=== PATIENT | male | born 1970 | race Caucasian/White ===

== ENCOUNTER 2021-05-14 20:54 | Emergency (ER) | payer OTHER ==
[~2021-05-14] VITALS: Ht 188 cm; Wt 131.5 kg
--- NOTE | 2021-05-14 21:06 | NUR ---
Patient presents with C/O possible infection on ankle. Patient states, "I have MS and have difficulty walking and have braces I use. I walked more than normal the last two weeks and my brace was rubbing the outside of my right ankle. I don't have much feeling in my legs so I didn't know it had developed. My sister looked at it and she said I needed to go to ER, so here I am." Patient alert, no signs of distress noted, vital signs stable. Patient rates pain 2/10 aching. No other complaints at this time.
[2021-05-14 21:17] VITALS: BP 164/87
[2021-05-14] MEDS ORDERED: ROCEPHIN IM STA (21:48)
--- NOTE | 2021-05-14 21:48 | ER.PDOC ---
General Chief Complaint: Extremities Stated Complaint: POSS FOOT INFECTION Time seen by MD: 21:39 Source: patient Exam Limitations: no limitations History of Present Illness Initial Comments Possible infection on right ankle for the past few days. Patient wears a brace because of Muscular dystrophy. He had an abrasion by the brace scrubbing against her right ankle which eventually is infected. No fever or chills. Severity: mild Location: RLE (ankle) Identified Cause: yes Allergies: Coded Allergies: sulfamethoxazole (Verified Adverse Reaction, Intermediate, Hives, 05/14/21) trimethoprim (Verified Adverse Reaction, Intermediate, Hives, 05/14/21) Past Medical History Medical History: other (Muscular dystrophy) Surgical History: no surgical history Family History Significant Family History: no pertinent family hx Social History Alcohol Use: occassionally Drug Use: none Constitutional: no symptoms reported EENTM: no symptoms reported Respiratory: no symptoms reported Cardiovascular: no symptoms reported Gastrointestinal: no symptoms reported Musculoskeletal: see HPI Skin: see HPI All Other Systems: Reviewed and Negative Physical Exam General Appearance: alert, no distress Skin: with erythema Location: RLE (lateral aspect of right ankle) Character: erythematous With: warmth, swelling, inflammation EENT: eyes nml inspection, lips/gums nml, pharynx nml Neck: trachea midline, no swelling Respiratory: no resp. distress, breath sounds nml CVS: reg. rate & rhythm, heart sounds nml Abdomen: non-tender, no organomegaly NEURO/PSYCH: oriented x 3, CN's nml as tested, motor nml, sensation nml, mood/affect nml Comments There is a healed abrasion on lateral malleolus of right ankle. There is surrounding redness, erythema slightly warm to touch. Results/Orders Results/Orders Vital Signs Date Time Temp Pulse Resp B/P (MAP) Pulse Ox O2 Delivery O2 Flow Rate FiO2 05/14/21 21:17 98.2 100 18 164/87 (112) 98 Room Air 05/14/21 21:17 98.2 100 18 05/14/21 21:17 98.2 100 18 98 Progress Progress Area of cellulitis marked with skin marker. Patient instructed to return to the ED if worsening redness or concerns. ER DEPART Departure Time of Disposition: 21:50 Disposition: 01 HOME / SELF CARE / HOMELESS Impression: Primary Impression: Cellulitis of right ankle Condition: Stable Referrals: KATHRYN,TOD F DO (PCP) PRIMARY CARE PROVIDER Additional Instructions: Clindamycin Follow-up with your PCP in 2 to 3 days Return to ED if worsening or concerns Duration or Time Spent with Pa: 10 min JANES ROACH MD May 14, 2021 21:48
[2021-05-14] MEDS ORDERED: ROCEPHIN ONE (22:10)
== END 2021-05-14 22:30 | disposition home or self-care (01) ==
LOC: ER 20:54
DX: L03.115 Cellulitis of right lower limb (principal); G71.00 Muscular dystrophy, unspecified; Z88.1 Allergy status to other antibiotic agents; Z88.2 Allergy status to sulfonamides
CPT/HCPCS: 96372; 99283; J0696

== ENCOUNTER 2021-07-19 12:32 | Emergency (ER) | payer OTHER ==
[~2021-07-19] VITALS: Ht 188 cm; Wt 129.3 kg
[2021-07-19 15:12] VITALS: BP 146/90
[2021-07-19 15:33] VITALS: BP 146/90
[2021-07-19 15:35] VITALS: BP 146/90
--- NOTE | 2021-07-19 15:38 | NUR ---
Pt A/O x4, able to communicate needs, denies pain. MD at bedside. Continue to monitor.
--- NOTE | 2021-07-19 15:40 | ER.PDOC ---
General Chief Complaint: Requesting Medical Care Stated Complaint: SWOLLEN AND PURPLE ANKLE/RETURN INFECTION TRAVEL OUT OF US: No Time seen by MD: 15:15 Source: patient Exam Limitations: no limitations History of Present Illness Initial Comments 50-year-old male presents for evaluation of nonhealing wound to his right lower extremity. He has a history of muscular dystrophy and he wears foot braces at all times. He has an area where on the lateral aspect of his right ankle the brace rubs and he has developed a callus. Skin is nonhealing. No warmth to the area. No purulent drainage. Was on antibiotics recently. Denies any fevers or chills or new trauma to the area. He still continues to smoke and has poorly controlled diabetes. Since losing his disability several years ago he has not had routine follow-up with medical providers. No other complaints at this time Allergies: Coded Allergies: sulfamethoxazole (Verified Adverse Reaction, Intermediate, Hives, 05/14/21) trimethoprim (Verified Adverse Reaction, Intermediate, Hives, 05/14/21) Past Medical History Medical History: coronary artery disease, cardiac problems, diabetes, hypertension, other Surgical History: no surgical history Social History Alcohol Use: occassionally Drug Use: none Review of Systems Constitutional: no symptoms reported EENTM: no symptoms reported Respiratory: no symptoms reported Cardiovascular: no symptoms reported Gastrointestinal: no symptoms reported Genitourinary: no symptoms reported Musculoskeletal: see HPI Skin: see HPI Psychiatric/Neurological: no symptoms reported Hematologic/Lymphatic: no symptoms reported Immunological/Allergic: no symptoms reported All Other Systems: Reviewed and Negative Physical Exam General Appearance: No Apparent Distress CVS: other (Capillary refill is somewhat diminished at 3 seconds on bilateral lower extremities. No signs of limb ischemia. Palpable 2+ pulses noted dorsalis pedis.) Extremities: Other (Examination of right lower extremity reveals nonhealing callus on the lateral aspect of the right ankle. No overlying erythema or warmth. No purulent discharge. Sequelae of old surgical scars noted.) Skin: Normal Color, Other (Wound as above.) Results/Orders Results/Orders Vital Signs Date Time Temp Pulse Resp B/P (MAP) Pulse Ox O2 Delivery O2 Flow Rate FiO2 07/19/21 15:33 97.8 73 22 07/19/21 15:12 97.8 73 22 96 Progress Progress Patient with nonhealing wound. Provided with dressing supplies changes. Discharged in satisfactory condition. Encouraged follow-up with podiatry. No signs of acute joint infection or cellulitis. Return precautions provided. Patient was agreeable to discharge plan. ER DEPART Departure Time of Disposition: 15:39 Disposition: 01 HOME / SELF CARE / HOMELESS Impression: Primary Impression: Foot callus Condition: Improved Referrals: TOD PERALTA DO (PCP) PRIMARY CARE PROVIDER Duration or Time Spent with Pa: 15 JESUSITA BAIRES DO Jul 19, 2021 15:39
== END 2021-07-19 15:50 | disposition home or self-care (01) ==
LOC: ER 12:41
DX: L84 Corns and callosities (principal); I10 Essential (primary) hypertension; Z88.1 Allergy status to other antibiotic agents; Z88.2 Allergy status to sulfonamides
CPT/HCPCS: 99284

== ENCOUNTER 2022-04-24 10:09 | Emergency (ER) | payer SELFPAY ==
[~2022-04-24] VITALS: Ht 188 cm; Wt 113.4 kg
[2022-04-24 10:09] VITALS: BP 158/75
--- NOTE | 2022-04-24 10:09 | NUR ---
ARRIVAL PATIENT ARRIVED TO ED5 AMBULATORY, C/O SORE THROAT AND KNOTS ON HIS NECK TODAY, CONCERNED AND CAME TO THE ED FOR EVAL, VITAL SIGNS TAKEN AND DOCTOR NOTIFIED OF PATIENT'S ARRIVAL.
[2022-04-24] MEDS ORDERED: TORADOL IM STA (10:16)
[2022-04-24] MEDS ORDERED: DECADRON PO STA (10:16)
[2022-04-24] MEDS ORDERED: TORADOL ONE (10:30)
[2022-04-24] MEDS ORDERED: DECADRON ONE (10:30)
[2022-04-24 11:16] VITALS: BP 132/73
--- NOTE | 2022-04-24 11:35 | ER.PDOC ---
General Chief Complaint: General Complaint Stated Complaint: NECK PAIN TRAVEL OUT OF US: No Time seen by MD: 10:05 Source: patient Exam Limitations: no limitations History of Present Illness Initial Comments Patient is a 51-year-old male with past medical history documented later in this chart who comes in with a right-sided preauricular tender lymph node that showed up 1 day ago. Patient states that he has been having a sore throat for the past couple of days but states that it radiates up into his right ear It is a sore in the natureNothing seems make better or worse. Patient states that the lymph node in popped up this morning states that it was very tender to palpation and made him nervous so he decided to come into the ER. Patient states is only on the right side of his neck states that the pain is made worse when you touch it better when left alone. Patient denies any fevers or any other symptoms at this time. Allergies: Coded Allergies: sulfamethoxazole (Verified Adverse Reaction, Intermediate, Hives, 05/14/21) trimethoprim (Verified Adverse Reaction, Intermediate, Hives, 05/14/21) Past Medical History Medical History: diabetes, hypertension Surgical History: other Family History Significant Family History: no pertinent family hx Social History Smoking: non-smoker Alcohol Use: none Drug Use: none Reviewed Nursing Reviewed: Vital Signs, Abn. Noted, Nursing Assessment Review of Systems Constitutional: denies no symptoms reported, denies see HPI, denies chills, denies diaphoresis, denies fever, denies malaise, denies weakness, denies other EENTM: ear pain, throat pain Respiratory: denies no symptoms reported, denies see HPI, denies cough, denies orthopnea, denies shortness of breath, denies stridor, denies wheezing, denies other Cardiovascular: denies no symptoms reported, denies see HPI, denies chest pain, denies edema, denies palpitations, denies syncope, denies other Gastrointestinal: denies no symptoms reported, denies see HPI, denies abdominal pain, denies constipation, denies diarrhea, denies nausea, denies vomiting, denies other Genitourinary: denies no symptoms reported, denies see HPI, denies discharge, denies dysuria, denies frequency, denies hematuria, denies pain, denies other Musculoskeletal: denies no symptoms reported, denies see HPI, denies back pain, denies gout, denies joint pain, denies joint swelling, denies muscle pain, denies muscle stiffness, denies neck pain, denies other Skin: denies no symptoms reported, denies see HPI, denies change in color, denies change in hair/nails, denies dryness, denies lesions, denies lumps, denies rash, denies other Hematologic/Lymphatic: swollen glands Immunological/Allergic: denies no symptoms reported, denies see HPI, denies food allergy, denies grass allergy, denies mold allergy, denies pollen allergy, denies HIV/AIDS, denies transplant Physical Exam General Appearance: No Apparent Distress, WD/WN EENT: eyes nml inspection, pharyngeal erythema, tenderness (Right-sided preauricular lymph node tender to palpation), other (Otitis media in right ear with effusion) Neck: Lymphadenopathy (R) Respiratory: chest non-tender, lungs clear, normal breath sounds, no respiratory distress CVS: reg rate & rhythm, no murmur, nml capillary refill Gastrointestinal: Normal Bowel Sounds, No Organomegaly, Non Tender Back: Normal Inspection, No CVA Tenderness Extremities: Normal Range of Motion, Non-Tender, Normal Inspection Neurologic/Psychiatric: roundsman II-XII NML as Tested, No Motor/Sensory Deficits, Alert, Normal Mood/Affect, Oriented x 3 Skin: Normal Color Lymphatic: Other (Right sided preauricular lymphadenopathy 1 lymph node) Results/Orders Results/Orders Orders - DIEGO BAPTISTE MD Strep Screen (04/24/22 10:16) Covid19 Antigen Tawny Andra (04/24/22 10:16) Influenza A&B (04/24/22 10:16) Monotest (04/24/22 10:16) Ketorolac Tromethamine (Toradol) (04/24/22 10:16) Dexamethasone (Decadron) (04/24/22 10:16) Vital Signs Date Time Temp Pulse Resp B/P (MAP) Pulse Ox O2 Delivery O2 Flow Rate FiO2 04/24/22 11:16 97.6 59 18 132/73 (92) 97 Room Air* 0 21 04/24/22 10:09 97.6 59 18 158/75 (102) 97 Room Air* 0 21 10/5/22 10:09 97.6 59 18 97 04/24/22 10:09 97.6 59 18 Administered Medications Medications (Trade) Dose Ordered Sig/Parul Route PRN Reason Start Time Stop Time Status Last Admin Dose Admin Dexamethasone (Decadron) 8 mg STAT STAT PO 04/24/22 10:16 04/24/22 10:18 DC 04/24/22 10:33 8 MG Ketorolac Tromethamine (Toradol) 15 mg OT STAT IM 04/24/22 10:16 04/24/22 10:18 DC 04/24/22 10:33 15 MG Laboratory Tests Test 04/24/22 10:26 04/24/22 10:49 Monoscreen NEGATIVE (NEGATIVE) Influenza Type A Antigen NEGATIVE (NEG) Influenza Type B Antigen NEGATIVE (NEG) SARS-CoV-2 Antigen (Rapid) NEGATIVE (NEGATIVE) Group A Streptococcus Screen NEGATIVE (NEGATIVE) Progress Progress Patient here with Otitis media in the right ear with effusion as well as a reactive lymph nodeIn the preauricular area on that side as well. Will swab for flu COVID strep and do a Monospot. We will also give some symptomatic control here in the ER. [id number] states he feels somewhat better. Will discharge with Augmentin and dexamethasone meclizine as that ear is causing him to be a little dizzy as well as some Sudafed for symptomatic control. Patient voiced understanding of when to follow-up and when to return to the ER. We had a long discussion that I do truly believe that this lymph node is reactive however if it does not get better he may need a further investigation and work-up. ER DEPART Departure Time of Disposition: 11:34 Disposition: HOME / SELF CARE / HOMELESS Impression: Primary Impression: Otitis media Additional Impression: Reactive lymphadenopathy Condition: Improved Patient Instructions: Otitis Media with Effusion Referrals: TOD PERALTA DO (PCP) PRIMARY CARE PROVIDER Additional Instructions: I have written you several prescriptions please take them as prescribed. As we discussed you need to follow-up with your primary care provider within 1 week. If you have any new persistent or worsening symptoms or concerns seek medical attention. If your lymph node does not improve you do need to have it further investigated with more lab work and potentially imaging. Duration or Time Spent with Pa: 40 Problem Qualifiers Primary Impression: Otitis media Otitis media type: suppurative Chronicity: acute Laterality: right Recurrence: not specified as recurrent Spontaneous tympanic membrane rupture: without spontaneous rupture Qualified Codes: H66.001 - Acute suppurative otitis media without spontaneous rupture of ear drum, right ear DIEGO BAPTISTE MD Apr 24, 2022 11:35
[2022-04-24 11:39] VITALS: BP 142/82
[2022-04-24 11:43] VITALS: BP 122/68
== END 2022-04-24 11:43 | disposition home or self-care (01) ==
LOC: ER 10:09
DX: H66.001 Acute suppurative otitis media without spontaneous rupture of ear drum, right ear (principal); Z20.822 Contact with and (suspected) exposure to COVID-19; E11.9 Type 2 diabetes mellitus without complications; R59.1 Generalized enlarged lymph nodes; I10 Essential (primary) hypertension; Z88.1 Allergy status to other antibiotic agents; Z88.2 Allergy status to sulfonamides
CPT/HCPCS: 99283; 87426; 96372; 87070; 87880; 87804 ×2; 86308; J8540; J1885

== ENCOUNTER 2022-07-16 19:14 | Emergency (ER) | payer OTHER ==
[~2022-07-16] VITALS: Ht 188 cm; Wt 113.4 kg
[2022-07-16 20:52] VITALS: BP 148/69
--- NOTE | 2022-07-16 20:59 | NUR ---
Arrival 51 y/o male ambulatory gait unsteady pt states its normal / ND usually wears braces on legs did not put them on today, c/o MAXWELL weakness, body aches, ear ache, fever, cough x 2 days. monitors applied, Dr. Barajas notified
[2022-07-16] MEDS ORDERED: DECADRON PO STA (21:04)
--- NOTE | 2022-07-16 21:34 | PCM.EKG ---
[facility] Test Date: 2022-07-16 Test Time: 21:30:22 Pat Name: JOHNY OLIVO Department: Room: Gender: M Line Assembler Aircraft: TAMIE : [id number] Requested By: AVINASH MCCLURE Order Number: [id number] Reading MD: Measurements Intervals [place] Rate: 75 P: 62 IN: 158 QRS: 54 QRSD: 103 T: 34 QT: 362 QTc: 405 Interpretive Statements Sinus rhythm No previous ECG available for comparison Please click the below link to view image of tracing.
[2022-07-16] MEDS ORDERED: DECADRON ONE (21:39)
--- NOTE | 2022-07-16 21:47 | DIREP ---
PROCEDURE:CHEST 1 VIEW COMPARISON:None. INDICATIONS:sob FINDINGS: LUNGS/PLEURA:Coarsened interstitial markings throughout both lungs but no focal consolidation or pleural effusion. Apical lordotic projection. VASCULATURE:Normal. Unremarkable pulmonary vasculature. CARDIAC:Normal. No cardiac silhouette abnormality or cardiomegaly. MEDIASTINUM:Normal. No visible mass or adenopathy. BONES:Normal. No fracture or visible bony lesion. OTHER:Negative. CONCLUSION:Coarsened interstitial markings throughout both lungs but no focal consolidation or pleural effusion. Dictated by: Edin Garay MD on 07/16/2022 at 09:45 PM
[2022-07-16 22:08] LABS: BASOPHIL % 0.4 % (0.0-0.2); EOSINOPHIL % 0.2 % (0.0-5.0); LYMPHOCYTES % 12.3 % (24.0-44.0); MEAN CORP HGB 29.8 pg (26-34); MONOCYTES # 0.4 10^3/uL (0.3-0.8); MONOCYTES % 7.2 % (5.0-12.0); NEUTROPHIL # 3.9 10^3/uL (1.8-7.7); NEUTROPHILS % 79.7 % (41.0-85.0); PLATELET COUNT 119 10^3/uL (150-400); RED CELL DISTRIBUTION WIDTH 15.9 % (11.5-14.5)
--- NOTE | 2022-07-16 22:15 | NUR ---
Critical Lab influenza A positve, Dr Barajas notified no new orders.
[2022-07-16 22:24] LABS: CARBON DIOXIDE 27.3 mmol/L (20.0-32); GLUCOSE 90 mg/dL (70-110)
--- NOTE | 2022-07-16 22:55 | ER.PDOC ---
General Chief Complaint: Requesting Medical Care Stated Complaint: HEADACHE,ST,EARACHE TRAVEL OUT OF US: No Time seen by MD: 19:20 Source: patient, family Exam Limitations: no limitations History of Present Illness Initial Comments 51-year-old male with a few days of cold symptoms. Fever,, congestion, ear pain. No cough, no chest pain or shortness of breath Allergies: Coded Allergies: sulfamethoxazole (Verified Adverse Reaction, Intermediate, Hives, 05/14/21) trimethoprim (Verified Adverse Reaction, Intermediate, Hives, 05/14/21) Past Medical History Medical History: other Surgical History: other Social History Alcohol Use: occassionally Drug Use: none Review of Systems All Other Systems: Reviewed and Negative Physical Exam General Appearance: No Apparent Distress EENT: other (R otitis media) Neck: Normal Inspection Respiratory: lungs clear, no respiratory distress CVS: reg rate & rhythm, pulses nml Gastrointestinal: Non Tender, Soft Extremities: Normal Inspection Neurologic/Psychiatric: Alert, Oriented x 3 Skin: Normal Color Lymphatic: No Adenopathy Results/Orders Results/Orders Orders - AVINASH MCCLURE MD Cbc With Auto Diff (07/16/22 21:04) Comprehensive Metabolic Panel (07/16/22 21:04) PT (07/16/22 21:04) Xr Chest 1v (07/16/22 21:04) Ekg-Routine (07/16/22 21:04) Troponin I High Sensitivity (07/16/22 21:04) Dexamethasone (Decadron) (07/16/22 21:04) Influenza A&B (07/16/22 21:39) Strep Screen (07/16/22 21:39) Covid19 Antigen Tawny Andra (07/16/22 21:39) Dexamethasone (Decadron) (07/16/22 21:39) Vital Signs Date Time Temp Pulse Resp B/P (MAP) Pulse Ox O2 Delivery O2 Flow Rate FiO2 07/16/22 20:52 99.0 79 20 148/69 (95) 95 Room Air* 0 21 07/16/22 20:52 99.0 79 20 95 07/16/22 20:52 99.0 79 20 Administered Medications Medications (Trade) Dose Ordered Sig/Parul Route PRN Reason Start Time Stop Time Status Last Admin Dose Admin Dexamethasone (Decadron) 4 mg STAT STAT PO 07/16/22 21:04 07/16/22 21:07 DC 07/16/22 21:41 4 MG Laboratory Tests Test 07/16/22 20:48 07/16/22 21:55 Influenza Type A Antigen POSITIVE (NEG) A Influenza Type B Antigen NEGATIVE (NEG) SARS-CoV-2 Antigen (Rapid) NEGATIVE (NEGATIVE) Group A Streptococcus Screen NEGATIVE (NEGATIVE) White Blood Count 4.9 10^3/uL (4.5-11.0) Red Blood Count 4.77 10^6/uL (4.50-5.90) Hemoglobin 14.2 g/dL (13.9-16.3) Hematocrit 42.8 % (37.0-53.0) Mean Corpuscular Volume 89.7 fL (78-100) Mean Corpuscular Hemoglobin 29.8 pg (26-34) Mean Corpuscular Hemoglobin Concent 33.2 g/dL (33-36.5) Red Cell Distribution Width 15.9 % (11.5-14.5) H Platelet Count 119 10^3/uL (150-400) L Mean Platelet Volume 10.0 fL (7.8-11.0) Neutrophils (%) (Auto) 79.7 % (41.0-85.0) Lymphocytes (%) (Auto) 12.3 % (24.0-44.0) L Monocytes (%) (Auto) 7.2 % (5.0-12.0) Neutrophils # (Auto) 3.9 10^3/uL (1.8-7.7) Lymphocytes # (Auto) 0.60 10^3/uL1 (1.0-4.8) L Monocytes # (Auto) 0.4 10^3/uL (0.3-0.8) Absolute Immature Granulocyte (auto 0.01 10^3 u/L (0-2) Absolute Eosinophils (auto) 0.0 10^3/uL (0.0-0.2) Immature Granulocytes % 0.20 % (0.00-0.50) Eosinophils % 0.2 % (0.0-5.0) Basophils % 0.4 % (0.0-0.2) H Basophils # 0.0 10^3/uL (0.0-0.1) Prothrombin Time 10.4 SEC (9.1-11.5) Prothrombin Time INR (Non-Therap) 1.0 Sodium Level 129 mmol/L (132-145) L Potassium Level 3.9 mmol/L (3.6-5.2) Chloride Level 93.0 mmol/L (96-109) L Carbon Dioxide Level 27.3 mmol/L (20.0-32) Anion Gap 12.6 Blood Urea Nitrogen 11 mg/dL (7-18) Creatinine 0.62 mg/dL (0.59-1.40) Estimated GFR () 164.2 (>/=60) Est GFR (CKD-EPI)(Non-Afr Indonesian) 135.7 (>/=60) BUN/Creatinine Ratio 17.0 Glucose Level 90 mg/dL (70-110) Calcium Level 8.8 mg/dL (8.4-10.5) Total Bilirubin 0.5 mg/dL (0.2-1.0) Aspartate Amino Transferase (AST) 27 U/L (0-35) Alanine Aminotransferase (ALT) 29 U/L (12-78) Alkaline Phosphatase 51 U/L (50-136) Troponin I High Sensitivity < 4 ng/L (0-75) Total Protein 6.9 g/dL (6.4-8.2) Albumin 3.8 g/dL (3.4-5.0) Globulin 3.1 Albumin/Globulin Ratio 1.225 ER DEPART Departure Time of Disposition: 22:54 Disposition: 01 HOME / SELF CARE / HOMELESS Impression: Primary Impression: Influenza A Condition: Improved Referrals: JOSE SANDOVAL MD (PCP) PRIMARY CARE PROVIDER Duration or Time Spent with Pa: AVINASH Shin MD Jul 16, 2022 22:55
[2022-07-16 22:57] VITALS: BP 149/89
== END 2022-07-16 23:05 | disposition home or self-care (01) ==
LOC: ER 19:14
DX: J10.1 Influenza due to other identified influenza virus with other respiratory manifestations (principal); Z88.1 Allergy status to other antibiotic agents; Z88.2 Allergy status to sulfonamides; Z20.822 Contact with and (suspected) exposure to COVID-19
CPT/HCPCS: 99285; 71045; 87426; 80053; 85025; 36415; 84484; 87070; 87880; 87804 ×2; 85610; 93005; J8540

== ENCOUNTER 2023-03-24 22:06 | Observation (INO) | payer OTHER, MEDICARE ==
[~2023-03-24] VITALS: Ht 188 cm; Wt 108.0 kg
[2023-03-24 22:35] VITALS: BP 117/72; PULSE 83; RESP 20; TEMP 97.8; O2SAT 97
[2023-03-24] MEDS ORDERED: VANCOMYCIN HCL 1 GM in NS 250ML 250 ML IV STA (22:59)
[2023-03-24] MEDS ORDERED: NS 250ML 250 ML ONE (23:14)
[2023-03-24] MEDS ORDERED: VANCOMYCIN HCL 1 GM ONE (23:14)
[2023-03-24 23:30] VITALS: BP 102/62; PULSE 76; RESP 20; TEMP 97.8; O2SAT 97
[2023-03-24 23:33] LABS: BASOPHIL % 0.2 % (0.0-0.2); EOSINOPHIL # 0.1 10^3/uL (0.0-0.2); EOSINOPHIL % 0.4 % (0.0-5.0); HEMATOCRIT(ML) 40.4 % (37.0-53.0); HEMOGLOBIN 13.6 g/dL (13.9-16.3); MEAN CORP HGB 29.9 pg (26-34); MEAN CORP HGB CONCENTRATION 33.7 g/dL (33-36.5); MEAN CORP VOLUME 88.8 fL (78-100); MONOCYTES % 7.5 % (5.0-12.0); NEUTROPHILS % 82.7 % (41.0-85.0); PLATELET COUNT 247 10^3/uL (150-400); RED BLOOD CELL 4.55 10^6/uL (4.50-5.90); RED CELL DISTRIBUTION WIDTH 14.7 % (11.5-14.5); WHITE BLOOD CELL 13.3 10^3/uL (4.5-11.0)
[2023-03-24 23:45] LABS: +ADD MANUAL DIFF(NO CHRG) NO
[2023-03-24 23:47] LABS: INR 0.9; PROTHROMBIN PROTIME 9.8 SEC (9.7-11.6)
[2023-03-24 23:53] LABS: ALBUMIN(ML) 3.7 g/dL (3.4-5.0); ALBUMIN/GLOBULIN RATIO 0.948; CALCIUM 9.4 mg/dL (8.4-10.5); CARBON DIOXIDE 26.7 mmol/L (20.0-32); CREATININE SERUM 0.87 mg/dL (0.59-1.40); EST GFR, NON-AA 91.4 (>/=60); POTASSIUM 3.7 mmol/L (3.6-5.2)
[2023-03-25] VITALS (9 sets, daily range): BP systolic 105–137; BP diastolic 70–83; PULSE 78–94; RESP 16–20; TEMP 97.7–98.3; O2SAT 92–98
[2023-03-25] MEDS ORDERED: NORCO 7.5 PO PRN (00:30)
[2023-03-25] MEDS ORDERED: ZOFRAN IV PRN (00:30)
[2023-03-25] MEDS ORDERED: TYLENOL PO PRN (00:30)
[2023-03-25] MEDS ORDERED: ZOSYN 3.375 GM 3.375 GM in NS 100ML 100 ML IV ONE (00:30)
[2023-03-25] MEDS ORDERED: MORPHINE SULFATE IV PRN (00:30)
[2023-03-25] MEDS ORDERED: NS 100ML 100 ML IV ONE (01:11)
[2023-03-25] MEDS: NS 1000ML 1,000 ML IV SCH ×4 (01:13→21:22)
[2023-03-25] MEDS ORDERED: MAGNESIUM-D5W 1 GM/100 ML SOLN 100 ML IV STA (01:31)
[2023-03-25] MEDS ORDERED: NICOTINE 21 MGPATCH TD STA (01:31)
[2023-03-25] MEDS ORDERED: WATER ONE (01:54)
[2023-03-25] MEDS ORDERED: METF500T17 PO (03:38)
[2023-03-25] MEDS ORDERED: ASPI-929 PO (03:38)
[2023-03-25] MEDS ORDERED: FOLI20CA PO (03:38)
[2023-03-25] MEDS ORDERED: ATEN25TA PO (03:38)
[2023-03-25] MEDS ORDERED: LISI1TAB41 PO (03:38)
[2023-03-25] MEDS ORDERED: GABA600T7 PO (03:38)
[2023-03-25] MEDS ORDERED: ALLO300T PO (03:38)
[2023-03-25] MEDS: VANCOMYCIN 1 GRAM/200 ML BAG 200 ML IV SCH ×2 (08:34→20:11)
[2023-03-25] MEDS: NICOTINE 21 MGPATCH TD SCH (08:35)
[2023-03-25 08:53] LABS: BASOPHIL % 0.2 % (0.0-0.2); EOSINOPHIL # 0.1 10^3/uL (0.0-0.2); EOSINOPHIL % 0.4 % (0.0-5.0); HEMATOCRIT(ML) 38.6 % (37.0-53.0); LYMPHOCYTES # 1.01 10^3/uL1 (1.0-4.8); LYMPHOCYTES % 9.1 % (24.0-44.0); MEAN CORP HGB 30.2 pg (26-34); MEAN CORP HGB CONCENTRATION 33.7 g/dL (33-36.5); MEAN CORP VOLUME 89.6 fL (78-100); MONOCYTES # 0.6 10^3/uL (0.3-0.8); NEUTROPHIL # 9.5 10^3/uL (1.8-7.7); PLATELET COUNT 240 10^3/uL (150-400); RED BLOOD CELL 4.31 10^6/uL (4.50-5.90); RED CELL DISTRIBUTION WIDTH 14.7 % (11.5-14.5); WHITE BLOOD CELL 11.1 10^3/uL (4.5-11.0)
[2023-03-25 08:55] LABS: +ADD MANUAL DIFF(NO CHRG) NO
[2023-03-25 08:56] LABS: ANION GAP 12.2; CALCIUM 9.2 mg/dL (8.4-10.5); CARBON DIOXIDE 27.4 mmol/L (20.0-32); CREATININE SERUM 0.79 mg/dL (0.59-1.40); EST GFR, NON-AA 102.2 (>/=60); POTASSIUM 3.6 mmol/L (3.6-5.2)
[2023-03-25] MEDS ORDERED: ZYLOPRIM PO SCH (10:30)
[2023-03-25] MEDS ORDERED: MAGNESIUM SULFATE 50 ML IV ONE (10:30)
[2023-03-25] MEDS ORDERED: ASPIRIN EC PO SCH (10:30)
[2023-03-25] MEDS ORDERED: ZESTRIL PO STA (12:48)
[2023-03-25] MEDS ORDERED: HYDROCHLOROTHIAZIDE PO STA (12:48)
[2023-03-25] MEDS: NEURONTIN PO SCH ×2 (15:23→20:10)
[2023-03-25] MEDS ORDERED: GLUCOPHAGE ONE (19:47)
[2023-03-25] MEDS ORDERED: FOLIC ACID PO ONE (19:47)
[2023-03-25] MEDS: FOLIC ACID PO SCH (20:10)
[2023-03-25] MEDS: GLUCOPHAGE PO SCH (20:10)
[2023-03-26] MEDS: NS 1000ML 1,000 ML IV SCH ×2 (03:01→09:50)
[2023-03-26 04:31] VITALS: BP 114/70; PULSE 81; RESP 18; TEMP 97.8; O2SAT 95
[2023-03-26 05:23] LABS: BASOPHIL % 0.3 % (0.0-0.2); EOSINOPHIL # 0.1 10^3/uL (0.0-0.2); EOSINOPHIL % 0.8 % (0.0-5.0); HEMATOCRIT(ML) 36.7 % (37.0-53.0); HEMOGLOBIN 12.1 g/dL (13.9-16.3); LYMPHOCYTES # 1.06 10^3/uL1 (1.0-4.8); MEAN CORP HGB 30.1 pg (26-34); MEAN CORP VOLUME 91.3 fL (78-100); MONOCYTES # 0.7 10^3/uL (0.3-0.8); NEUTROPHIL # 5.7 10^3/uL (1.8-7.7); NEUTROPHILS % 75.5 % (41.0-85.0); PLATELET COUNT 230 10^3/uL (150-400); RED BLOOD CELL 4.02 10^6/uL (4.50-5.90); RED CELL DISTRIBUTION WIDTH 14.7 % (11.5-14.5); WHITE BLOOD CELL 7.6 10^3/uL (4.5-11.0)
[2023-03-26 05:35] LABS: ANION GAP 12.2; CALCIUM 9.2 mg/dL (8.4-10.5); CARBON DIOXIDE 27.8 mmol/L (20.0-32); CREATININE SERUM 0.76 mg/dL (0.59-1.40); EST GFR, NON-AA 106.9 (>/=60)
[2023-03-26 06:13] LABS: +ADD MANUAL DIFF(NO CHRG) NO
[2023-03-26 07:00] VITALS: BP 132/78; PULSE 94; RESP 19; TEMP 97.4; O2SAT 92
[2023-03-26] MEDS ORDERED: MAGNESIUM SULFATE 50 ML IV ONE (08:30)
[2023-03-26] MEDS: NICOTINE 21 MGPATCH TD SCH (08:43)
[2023-03-26] MEDS: FOLIC ACID PO SCH (08:45)
[2023-03-26] MEDS: NEURONTIN PO SCH (08:45)
[2023-03-26] MEDS: GLUCOPHAGE PO SCH (08:48)
[2023-03-26] MEDS: VANCOMYCIN 1 GRAM/200 ML BAG 200 ML IV SCH (09:00)
[2023-03-26] MEDS ORDERED: TENORMIN PO SCH (09:00)
[2023-03-26] MEDS ORDERED: HYDROCHLOROTHIAZIDE PO SCH (09:00)
[2023-03-26] MEDS ORDERED: ZESTRIL PO SCH (09:00)
[2023-03-26] MEDS ORDERED: CLIN-109 PO (09:15)
[2023-03-26 10:18] VITALS: BP 132/78; PULSE 94; RESP 19; TEMP 97.4; O2SAT 92
== END 2023-03-26 10:15 | disposition home or self-care (01) ==
LOC: ER 22:06 → MS 03-25 00:11
PROVIDERS: ADMIT Internal Medicine; ATTEND Internal Medicine
DX: L03.116 Cellulitis of left lower limb (principal); E83.42 Hypomagnesemia; G62.9 Polyneuropathy, unspecified; E11.9 Type 2 diabetes mellitus without complications; E66.9 Obesity, unspecified; F17.210 Nicotine dependence, cigarettes, uncomplicated; Z68.34 Body mass index [BMI] 34.0-34.9, adult; Z79.899 Other long term (current) drug therapy
CPT/HCPCS: 96365; 99284; 73560; 80053; 85025 ×3; 36415 ×3; 87040 ×2; 83605; 85610; 85730; 96367; 96366 ×2; 96361 ×2; 96375; 87070; 82948 ×5; 80048 ×2; 82550 ×2; 84100; 83735 ×3; 80202; J7050 ×2; J3370 ×2; G0378 ×34; J3475 ×3; J7030 ×4; J3490 ×2; J2543